=== PATIENT | female | born 1940 | race Caucasian/White ===

== ENCOUNTER → 2016-10-28 | Outpatient (CLI) | payer MEDICARE ==
[2016-10-28 10:47] LABS: ANION GAP 17.5 MEQ/L (3-15)
== END ==
LOC: LAB 09:49
PROVIDERS: ATTEND Family Medicine
DX: Z51.81 Encounter for therapeutic drug level monitoring (principal); Z79.01 Long term (current) use of anticoagulants; E11.65 Type 2 diabetes mellitus with hyperglycemia; R79.89 Other specified abnormal findings of blood chemistry
CPT/HCPCS: 36415; 80048; 83036; 85610

== ENCOUNTER → 2016-11-23 | Outpatient (CLI) | payer MEDICARE | LOC: LAB 13:17 | PROVIDERS: ATTEND Family Medicine | DX: Z51.81 Encounter for therapeutic drug level monitoring (principal); Z79.01 Long term (current) use of anticoagulants | CPT/HCPCS: 36415; 85610 ==

== ENCOUNTER → 2017-02-09 | Outpatient (CLI) | payer MEDICARE | LOC: LAB 13:10 | PROVIDERS: ATTEND Family Medicine | DX: Z51.81 Encounter for therapeutic drug level monitoring (principal); Z79.01 Long term (current) use of anticoagulants | CPT/HCPCS: 36415; 85610 ==

== ENCOUNTER → 2017-02-12 | Outpatient (CLI) | payer MEDICARE ==
[2017-02-12 11:43] LABS: BASOPHILS % (AUTO) 0 % (0-2); EOSINOPHILS # (AUTO) 0.1 10^3uL; EOSINOPHILS % (AUTO) 2 % (0-4); MEAN CORPUSCULAR HEMOGLOBIN 27.8 PG (26.0-34.0); MEAN CORPUSCULAR HGB CONC 32.6 g/dL (31.0-37.0); MEAN CORPUSCULAR VOLUME 85 FL (80-100); MEAN PLATELET VOLUME 10.4 FL (6.0-9.5); MONOCYTES # (AUTO) 0.6 X10^3; MONOCYTES % (AUTO) 11 % (3-11); NEUTROPHILS # (AUTO) 2.9 X10^3; NEUTROPHILS % (AUTO) 51 % (51-67); PLATELET COUNT 266 10^3uL (150-450); WHITE BLOOD COUNT 5.65 10^3uL (4.0-11.0)
[2017-02-12 11:53] LABS: BILIRUBIN,URINE Negative (Negative); CLARITY,URINE Clear; COLOR,URINE Yellow; GLUCOSE, URINE (UA) Negative (Negative); LEUKOCYTE ESTERASE ,URINE Trace (Negative); UROBILINOGEN,URINE 0.2 mg/dL (0.2-1.0)
[2017-02-12 11:54] LABS: URINE CENTRIFUGED VOLUME 12 mL
[2017-02-12 11:58] LABS: RBC,URINE 0-2 /HPF
[2017-02-12 12:19] LABS: ALBUMIN 4.7 g/dL (3.4-5.0); ANION GAP 20.3 MEQ/L (3-15); CALCULATED IONIZED CALCIUM 4.2 mg/dL (3.8-4.6); MAGNESIUM* 2.2 mg/dL (1.6-2.3); TOTAL PROTEIN 8.4 g/dL (6.4-8.5)
[2017-02-12 18:59] LABS: GGT 163 U/L (3-36)
== END ==
LOC: LAB 11:28
PROVIDERS: ATTEND Family Medicine
DX: E11.65 Type 2 diabetes mellitus with hyperglycemia (principal); M81.0 Age-related osteoporosis without current pathological fracture; E03.4 Atrophy of thyroid (acquired); E83.42 Hypomagnesemia; K71.2 Toxic liver disease with acute hepatitis; G72.0 Drug-induced myopathy; R79.89 Other specified abnormal findings of blood chemistry; E78.2 Mixed hyperlipidemia; N39.0 Urinary tract infection, site not specified
CPT/HCPCS: 36415; 80053; 80061; 81003; 81015; 82043; 82306; 82550; 82977; 83036; 83735; 84436; 84443; 85025; 87088

== ENCOUNTER → 2017-03-02 | Outpatient (CLI) | payer MEDICARE ==
--- NOTE | 2017-03-02 09:18 | Diagnostic Imaging Report ---
INDICATION: Dyspnea. COMPARISON: 02/27/2016. FINDINGS: 2 views of the chest are obtained. Heart size is mildly enlarged, but unchanged. There is no central venous congestion or evidence of failure. There is no pneumothorax or pleural fluid. There is some scarring in the lateral left midlung which is unchanged. Lungs are otherwise clear. There are degenerative changes in the spine. IMPRESSION: Stable radiographic appearance of the chest when compared to the prior study. No new or acute abnormality is suspected. Dictated by: Dictated on workstation # [id number]
--- NOTE | 2017-03-03 09:07 | Diagnostic Imaging Report ---
DIG TRINI BILAT SCREEN W CAD Comparison: 02/27/2016 and 02/25/2015 Indication: Screening mammography. Technique: Digital screening mammography was obtained with a computer-aided detection (CAD) system. Findings: The breasts are almost entirely fatty. Stable surgical changes from excisional biopsy in the left upper breast. No dominant mass, suspicious microcalcifications or architectural distortion to suggest malignancy. Impression: Stable mammogram without evidence of malignancy. Followup screening mammogram in 12 months is recommended. ACR BI-RADS Category 2: Benign findings. Result letter will be mailed to the patient. Note: At least 10% of breast cancer is not imaged by mammography. Dictated by: Dictated on workstation # [id number]
== END ==
LOC: RAD 08:30
PROVIDERS: ATTEND Family Medicine
DX: Z12.31 Encounter for screening mammogram for malignant neoplasm of breast (principal); Z51.81 Encounter for therapeutic drug level monitoring; Z79.01 Long term (current) use of anticoagulants; R06.00 Dyspnea, unspecified
CPT/HCPCS: 36415; 71020; 85610; G0202